=== PATIENT | female | born 1960 | race Caucasian/White ===

== ENCOUNTER 2017-07-10 12:23 | Emergency (ER) | payer MEDICAID, SELFPAY ==
[2017-07-10 12:23] VITALS: BP 179/124; PULSE 102; RESP 18; TEMP 36.3; O2SAT 97; BMI 42.5
--- NOTE | 2017-07-10 12:38 | EKG12_ITS ---
Test Reason : NAUSEA Blood Pressure : / mmHG Vent. Rate : 094 BPM Atrial Rate : 094 BPM P-R Int : 144 ms QRS Dur : 140 ms QT Int : 392 ms P-R-T Axes : 051 270 044 degrees QTc Int : 490 ms Sinus rhythm with frequent Premature ventricular complexes Right bundle branch block Left anterior fascicular block Bifascicular block Inferior infarct , age undetermined Abnormal ECG Confirmed by RAGHU AGUILA, JENIFER ([id number]), content editor DAMION YANEZ ([id number]) on 07/12/2017 1:09:20 PM Referred By: KIMMIE Confirmed By:JENIFER KRISHNAMURTHY MD
--- NOTE | 2017-07-10 12:39 | CT_ITS ---
STUDY: CT ABDOMEN AND PELVIS WITH CONTRAST REASON FOR EXAM: Female, 57 years old. Nausea, vomiting and abdominal pain x1 week. RADIATION DOSAGE (If Supplied By Facility): CTDIvol = ( 20.31 ) mGy, DLP = ( 1110.97 ) mGycm TECHNIQUE: Transaxial images were obtained from the dome of the diaphragm to the symphysis pubis without oral contrast. 100 ml of Isovue 300 contrast was administered. Sagittal and coronal images were reconstructed. Individualized dose optimization techniques were used for this CT. COMPARISON: None. FINDINGS: The visualized lung bases are unremarkable. The visualized portions of the heart are within normal limits. Normal liver. The gallbladder appears unremarkable. There is no intrahepatic biliary ductal dilatation. However, the common bile duct is distended measuring 1.[address] sequence 2, image 30. There is no CT evident etiology for this biliary ectasia. Normal spleen. Normal pancreas. Normal bilateral adrenal glands. Normal right kidney. Normal left kidney. Normal visualized stomach. Normal small intestine. Normal colon. There is non-visualization of the appendix. There is focal ectasia of the infrarenal abdominal aorta with calcified plaque. This ectasia extends into the bilateral common iliac arteries. No vasquez aneurysm is identified. Normal inferior vena cava. Normal retroperitoneum. Normal urinary bladder. Normal abdominal wall. There is no acute osseous abnormality. There is no suspicious lytic or blastic osseous pathology. Mild diffuse spinal degenerative changes are identified. CT/Abdomen/Pelvis WITH Contrast IMPRESSION: Common bile duct ectasia as above without CT evident etiology. Atherosclerotic peripheral vascular disease. Focal ectasia of the infrarenal abdominal aorta with calcified plaque. This ectasia extends into the bilateral common iliac arteries. No vasquez aneurysm is identified. No CT evident acute intra-abdominal or intrapelvic finding. Electronically Signed: Sid Ang MD at 15:02 EDT , Service support ,
[2017-07-10] MEDS: 0.9% Normal Saline 1,000 ML 1000 ML IV (12:58)
[2017-07-10] MEDS: proMETHazine 25 MG/ML Syringe 12.5 MG IV (12:58)
[2017-07-10] MEDS: HYDROmorphone 1 MG/ML Syringe IV (12:58)
[2017-07-10 13:04] LABS: Absolute Lymphocyte Count 2.74 X10^3/ul (0.83-4.51); Absolute Neutrophil Count 4.2 X10^3/uL (2.0-7.7); Basophil# 0.07 X10^3/uL; Basophil% 0.9 % (0-1); Eosinophil# 0.02 X10^3/uL; Eosinophils% 0.3 % (0-5); Hematocrit 41.8 % (37-47); Hemoglobin 13.3 g/dl (12.0-15.0); Lymphocyte # 2.74 X10^3/ul (4.0); Lymphocyte % 36.1 % (19-41); Mean Corp Hgb Conc 31.8 g/gl (32-36); Mean Corpuscular Hgb 26.2 pg (27.0-32.0); Mean Corpuscular Volume 82.3 fL (81-99); Monocyte# 0.53 X10^3/uL; Neutrophil # 4.21 X10^3/uL (2.7-7.7); Neutrophil % 55.6 % (47-70); Platelet Count 261 K/mm3 (150-450); RBC Distribution Width CV 18.4 % (11.6-14.6); RBC Distribution Width SD 55.3 fl (35.1-43.9); Red Blood Count 5.08 M/mm3 (4.2-5.4); White Blood Count 7.6 K/mm3 (4.4-11.0)
[2017-07-10 13:06] LABS: Differential Indicated SCAN CRITERIA MET; POSITIVE COUNT NO; POSITIVE DIFFERENTIAL NO; POSITIVE MORPHOLOGY YES
[2017-07-10 13:22] LABS: ALB/GLOB Ratio 0.8 RATIO (0.9-2.4); AST(SGOT) 17 U/L (15-37); Alanine Aminotransfer ALT/SGPT 28 U/L (13-56); Albumin, Serum 3.6 g/dL (3.2-5.0); Alkaline Phosphatase 103 U/L (45-117); Anion Gap 6 (5-15); BUN 11 mg/dL (7-18); BUN/Creat Ratio 14.4 RATIO (10-20); Calcium,Total 9.5 mg/dL (8.5-10.1); Chloride 102 mmol/L (98-107); Creatinine, Serum 0.76 mg/dL (0.55-1.02); EST Glomerular Filtration Rate 83 mL/min (>60); Est Glom Filt Rate - Afr Amer 100 mL/min (>60); Estimated Creatinine Clearance 66.74 ml/min; Globulin 4.6 g/dL (2.2-4.2); Glucose 106 mg/dL (74-106); Lipase 133 U/L (73-393); Potassium 3.9 mmol/L (3.5-5.1); Protein, Total 8.2 g/dL (6.4-8.2); Sodium Level 138 mmol/L (136-145)
[2017-07-10 13:25] LABS: Lactic Acid 1.4 mmol/L (0.4-2.0)
[2017-07-10 13:30] LABS: Atypical Lymphocyte RARE %
[2017-07-10 14:39] LABS: Bacteria 0 SEEN /hpf (None Seen); Mucous, Urine 0 SEEN /hpf (<or=2+); Red Blood Cells-Urine 0 SEEN /hpf (0-5); White Blood Cells 0 SEEN /hpf (0-5)
[2017-07-10 14:42] LABS: Color, Urine Yellow (Yellow); Glucose, Dipstick Normal (Normal); Ketone-Dipstick Negative (Negative); Leukocyte Esterase-Dipstick Negative /ul (Negative); Nitrite-Dipstick Negative (Negative); Occult Blood-Urine 10 /ul (Negative); Protein-Dipstick 15 mg/dl (Negative); Urine Bilirubin Dipstick Negative (Negative); Urine Clarity Clear (Clear); Urine Urobilinogen Normal (Normal)
[2017-07-10 14:48] VITALS: BP 122/93; PULSE 96; RESP 16; O2SAT 95
[2017-07-10 14:48] LABS: Squamous Epithelial Cells - UA 0-5 SEEN /hpf (5-10)
--- NOTE | 2017-07-10 15:24 | US_ITS ---
STUDY: ABDOMINAL ULTRASOUND - RIGHT UPPER QUADRANT REASON FOR VISIT: Female, 57 years old. ABD PAIN TECHNIQUE: Ultrasound evaluation of the right upper quadrant was performed with real-time and static ritchie-scale imaging. TECHNICAL QUALITY: Adequate. COMPARISON: CT Jul 10 2017 2:04pm . FINDINGS: Liver: The liver measures 19.1 cm. There is increased echogenicity consistent with fatty infiltration. The bile ducts are within normal limits. There is hepatic color flow. The direction of portal flow is hepatopetal. There is no demonstrated mass lesion. Gallbladder: Normal distended gallbladder. The gallbladder wall measures 2.7 mm. There is a negative sonographic Gonzalez's sign. There is no pericholecystic fluid. There are no gallstones. Common Bile Duct (C.B.D.): The common bile duct measures 3.5 -5.7mm. Pancreas: There is nonvisualization of the pancreas. Right Kidney: Normal size of the right kidney. The right kidney measures 11.1X6X4.9 cm. Normal renal cortex. The right cortex measures 1.6 cm. There is no demonstrated renal mass or cyst. There is no right hydronephrosis. US/Gallbladder IMPRESSION: There is nonvisualization of the pancreas. Fatty liver. There is mild dilation of the common bile duct. A common bile duct stone is not seen. Electronically Signed: Rob Greco MD at 17:05 EDT , Service support ,
--- NOTE | 2017-07-10 16:21 | ED.VISSUMM ---
- ER Visit Summary Date of Service: 07/10/17 Chief Complaint: [Abdominal pain] History of Present Illness: The patient is a 57 F [to the emergency department complaint of abdominal pain times 6 days. Patient's had nausea and vomiting as well as dry heaves. Patient had fever up to 100.0 at home. She denies any diarrhea. She has had decreased appetite. Patient denies urinary symptoms. Patient has had prior appendectomy and she has had a thoracic aortic aneurysm repair. Patient had tubal ligation.] Physical Examination: [HEENT-PERRLA, EOMI. Cranial nerves II through XII grossly intact. TMs clear. Mucous membranes moist. No adenopathy. Cardiovascular-regular rate and rhythm without murmur or ectopy Lungs-clear to auscultation, chest wall stable without crepitus or subcu emphysema Abdomen-normoactive bowel sounds, soft. Patient has tenderness over the right upper quadrant and epigastric region. There is no rebound, rigidity, or perineal signs. Extremities-intact ?4, normal range of motion, normal pulses, atraumatic] Test Results: [CBC with differential obtained was normal. Chemistries were normal. Liver enzymes were normal. Lipase is 133. EKG obtained on arrival shows sinus rhythm with a ventricular rate of 94 bpm with occasional PVCs and a bifascicular block. Troponin was less than 0.02. CT scan of the abdomen and pelvis showed common bile duct ectasia otherwise nothing acute. Gallbladder ultrasound pending] Emergency Department Course and Treatment: [Was medicated with Dilaudid and Phenergan. Patient's pain resolved.] Treatment Plan: [Pending ultrasound report]. Care of patient turned over to evening physician awaiting results Disposition: [Pending] Impression: [Abdominal pain] This note was generated with [employer]™ dictation software. It may contain incorrect words, spelling, and punctuation that were not noted in review of the chart prior to signing ED Disposition - Plan for ED Patient: Chief Complaint: Nausea/Vomiting Referrals: Francisco Sands MD [Primary Care Provider] -
[2017-07-10 16:48] LABS: Prothrombin Time (Protime)PT. 22.3 SECONDS (11.7-14.9)
[2017-07-10 17:13] VITALS: BP 105/74; PULSE 92; RESP 20; O2SAT 96
[2017-07-10 18:31] VITALS: BP 150/100; PULSE 108; RESP 20; TEMP 37.3; O2SAT 99
[2017-07-10] MEDS: proMETHazine 25 MG/ML Syringe 6.25 MG IV (19:20)
--- NOTE | 2017-07-10 19:57 | ED.VISSUMM ---
- ER Visit Summary Date of Service: 07/10/17 Chief Complaint: [] History of Present Illness: The patient is a 57 F [] Physical Examination: [] Test Results: [] Emergency Department Course and Treatment: [] Treatment Plan: [] Disposition: [] Impression: [] This note was generated with [employer] dictation software. It may contain incorrect words, spelling, and punctuation that were not noted in review of the chart prior to signing ED Disposition - Plan for ED Patient: Disposition: Home or Assisted Living Chief Complaint: Nausea/Vomiting Instructions: ED Abdominal Pain Unkn Cause Referrals: Francisco Sands MD [Primary Care Provider] - 3-5 Days if not improving
[2017-07-10 20:10] VITALS: BP 150/103; PULSE 110; RESP 18; O2SAT 98
--- NOTE | 2017-07-10 20:12 | ED.DCSUM_ITS ---
- ER Visit Summary Date of Service: 07/10/17 Chief Complaint: [] History of Present Illness: The patient is a 57 F [] Physical Examination: [] Test Results: [] Emergency Department Course and Treatment: [] Treatment Plan: [] Disposition: [] Impression: [] This note was generated with [employer] dictation software. It may contain incorrect words, spelling, and punctuation that were not noted in review of the chart prior to signing ED Disposition - Plan for ED Patient: Disposition: Home or Assisted Living Chief Complaint: Nausea/Vomiting Instructions: ED Abdominal Pain Unkn Cause Prescriptions: Ondansetron [Zofran Odt] 8 mg PO Q8H PRN PRN #5 PRN Reason: Nausea/Vomiting Referrals: Francisco Sands MD [Primary Care Provider] - 3-5 Days if not improving
== END 2017-07-10 20:13 | disposition home or self-care (01) ==
PROVIDERS: Emergency Provider Emergency Medicine; Family Provider Family Medicine; PCP Family Medicine
DX: R10.816 Epigastric abdominal tenderness (principal); R10.811 Right upper quadrant abdominal tenderness; R11.2 Nausea with vomiting, unspecified; R50.9 Fever, unspecified; I49.3 Ventricular premature depolarization; I45.2 Bifascicular block; I10 Essential (primary) hypertension; Z90.89 Acquired absence of other organs; Z98.51 Tubal ligation status; Z79.01 Long term (current) use of anticoagulants; Z79.899 Other long term (current) drug therapy
CPT/HCPCS: 74177; 76705; 80053; 81001; 83605; 83690; 84484; 85025; 85610; 93005; 96361; 96374; 96375; 96376; 99283; J7030; Q9967; A4216

== ENCOUNTER → 2017-09-12 12:34 | Outpatient (CLI) | payer MEDICAID, SELFPAY ==
[2017-09-12 13:17] LABS: ALB/GLOB Ratio 0.8 RATIO (0.9-2.4); AST(SGOT) 19 U/L (15-37); Alanine Aminotransfer ALT/SGPT 22 U/L (13-56); Albumin, Serum 3.6 g/dL (3.2-5.0); Alkaline Phosphatase 96 U/L (45-117); Anion Gap 7 (5-15); BUN 16 mg/dL (7-18); BUN/Creat Ratio 18.8 RATIO (10-20); Calcium,Total 9.5 mg/dL (8.5-10.1); Chloride 104 mmol/L (98-107); Creatinine, Serum 0.85 mg/dL (0.55-1.02); EST Glomerular Filtration Rate 73 mL/min (>60); Est Glom Filt Rate - Afr Amer 88 mL/min (>60); Globulin 4.5 g/dL (2.2-4.2); Glucose 88 mg/dL (74-106); Lipase 213 U/L (73-393); Potassium 4.1 mmol/L (3.5-5.1); Protein, Total 8.1 g/dL (6.4-8.2); Sodium Level 139 mmol/L (136-145)
[2017-09-12 13:25] LABS: BNP,B-Type NATRIURETIC PEPTIDE 20.4 pg/mL (0-100)
== END ==
LOC: LAB 12:35 → LABSPEC 12:37
PROVIDERS: Family Provider Family Medicine; PCP Family Medicine
DX: R10.84 Generalized abdominal pain (principal); R06.00 Dyspnea, unspecified; R06.89 Other abnormalities of breathing
CPT/HCPCS: 80053; 83690; 83880

== ENCOUNTER → 2018-01-17 11:50 | Outpatient (CLI) | payer MEDICAID, SELFPAY ==
[2018-01-17 13:38] LABS: International Normalized Ratio 2.1
== END ==
PROVIDERS: Family Provider Family Medicine; PCP Family Medicine; Referring Provider Family Medicine; Visit Provider Family Medicine
DX: I48.0 Paroxysmal atrial fibrillation (principal)
CPT/HCPCS: 85610

== ENCOUNTER 2018-11-17 20:31 | Emergency (ER) | payer MEDICAID, SELFPAY ==
[2018-11-17 20:31] VITALS: BP 149/105; PULSE 79; RESP 20; TEMP 36.7; O2SAT 97; BMI 44.5
--- NOTE | 2018-11-17 20:51 | ED.VIS.GEN ---
History of Present Illness Chief Complaint: Back Detail of Chief Complaint: Back spasms Informant: Patient Onset: Today Current Severity: Mild Maximum Severity: Moderate Narrative: Patient presents with spasms to the right side of her back that started at dinner this evening. She denies any injury. Pain does not radiate down her legs. She does have a history of prior AAA repair. She denies any anterior abdominal pain. Past Medical History - Allergies and Home Meds Allergies/Adverse Reactions: Allergies No Known Allergies Allergy (Verified 07/10/17 12:27) Primary Care Physician: Francisco Sands MD [Primary Care Provider] - Prior records reviewed: Yes Past Medical History: - - Reviewed Lives: Spouse/ Significant Other Smoking Status: Current every day smoker Review of Systems General: Denies: Chills, Fever Eyes: Denies: Visual changes - bilaterally ENT: Denies: Bilateral ear pain Cardiovascular: Denies: Chest pain Respiratory: Denies: Dyspnea, Cough Gastrointestinal: Denies: Abdominal pain Genitourinary: Denies: Dysuria Musculoskeletal: Reports: Back pain Skin: Denies: Rash Neurological: Denies: Headache Endocrine: Denies: Polyuria, Polydipsia Hematologic: Denies: Easy bruising Allergy: Denies: Uticaria Physical Exam Vital Signs/Narrative: Vital Signs Temp Pulse Resp BP Pulse Ox 11/17/18 20:31 98.0 F 79 20 H 149/105 H 97 Inital Vital Signs reviewed: Yes General: Well nourished, Well developed Head: Normocephalic Eyes: Perrl, EOMI ENT: Moist mucous membranes Neck: Supple Cardiovascular: Regular rate, Regular rhythm Respiratory: No distress Abdomen: Soft, Nontender Back: - - No midline thoracic or lumbar tenderness. She does have tenderness in the upper lumbar paraspinals on the right. Extremities: Nontender Skin: Normal color Neurological: Alert, Oriented x3 Psychological: Normal affect Diagnostic/Tx/Re-eval Laboratory Results 11/17/18 21:05 Urine Color Yellow Urine Clarity Clear Urine pH 5.0 Ur Specific [place] 1.015 Urine Protein Negative Urine Glucose (UA) Normal Urine Ketones Negative Urine Occult Blood Negative Urine Nitrite Negative Urine Bilirubin Negative Urine Urobilinogen Normal Ur Leukocyte Esterase 25 H Urine RBC 0 SEEN Urine WBC 0-5 SEEN Ur Squamous Epith Cells 0-5 SEEN Urine Bacteria 0 SEEN Urine Mucus 0 SEEN - Medical Decision Making Patient was given 1 tab of [place] and 5 mg of p.o. Valium for muscle spasm. On repeat evaluation she does feel improved. Urine does not show infection. She has reproducible pain in the muscles. ED Disposition - Plan for ED Patient: Disposition: Home or Assisted Living Instructions: BACK SPASM, No Trauma Prescriptions: Hydrocodone Bitart/Apap 5-325 [[place] 5MG-325MG] 1 tablet PO Q6H PRN PRN 3 Days #10 tablet PRN Reason: Pain Diazepam [Valium] 5 mg PO Q8 PRN #10 tablet PRN Reason: Muscle Spasm Referrals: Francisco Sands MD [Primary Care Provider] - 1 Week if not improving
[2018-11-17] MEDS: diazePAM 5 MG Tablet PO (21:04)
[2018-11-17] MEDS: HYDROcodone Bitartrate/Apap 5/325 Tablet PO (21:04)
[2018-11-17 21:30] LABS: Bacteria 0 SEEN /hpf (None Seen); Mucous, Urine 0 SEEN /hpf (<or=2+); Red Blood Cells-Urine 0 SEEN /hpf (0-5)
[2018-11-17 21:47] LABS: Color, Urine Yellow (Yellow); Glucose, Dipstick Normal (Normal); Ketone-Dipstick Negative (Negative); Leukocyte Esterase-Dipstick 25 /ul (Negative); Nitrite-Dipstick Negative (Negative); Occult Blood-Urine Negative /ul (Negative); Protein-Dipstick Negative (Negative); Specific Gravity, Urine 1.015 (1.002-1.030); Urine Bilirubin Dipstick Negative (Negative); Urine Clarity Clear (Clear); Urine Urobilinogen Normal (Normal)
[2018-11-17 21:52] LABS: Squamous Epithelial Cells - UA 0-5 SEEN /hpf (5-10); White Blood Cells 0-5 SEEN /hpf (0-5)
[2018-11-17 22:11] VITALS: BP 138/69; PULSE 71; RESP 18; O2SAT 96
== END 2018-11-17 22:11 | disposition home or self-care (01) ==
PROVIDERS: Emergency Provider Emergency Medicine; Family Provider Family Medicine; PCP Family Medicine
DX: M62.830 Muscle spasm of back (principal); M54.5 Low back pain; Z79.899 Other long term (current) drug therapy; F17.200 Nicotine dependence, unspecified, uncomplicated
CPT/HCPCS: 81001; 99283

== ENCOUNTER 2019-04-18 18:27 | Emergency (ER) | payer MEDICAID, SELFPAY ==
[2019-04-18 18:30] VITALS: BP 165/136; PULSE 89; RESP 20; TEMP 36.6; O2SAT 94; BMI 40.7
--- NOTE | 2019-04-18 18:46 | ED.DCSUM_ITS ---
- ER Visit Summary Date of Service: 04/18/19 Chief Complaint: Atraumatic low back pain. History of prior muscle spasms. History of Present Illness: The patient is a 59 F history of COPD. Prior aortic repair. Patient states last night she started getting atraumatic back spasms. She is had these before. She denies dysuria or fever. No other complaints. No weakness or numbness in her upper or lower extremities. Physical Examination: Middle-aged female vital signs stable afebrile. H EENT exam unremarkable. Neck nontender no lymphadenopathy. Lungs clear to auscultation bilaterally. Heart regular rhythm no murmur. Abdomen is soft nontender normal bowel sounds no peritoneal signs. Patient moving all 4 extremities. Neurovascular intact. No cauda equina. Normal medial thigh sensation. Normal dorsi plantarflexion. Back patient has paralumbar soft tissue tenderness consistent with muscle spasms. Spine otherwise unremarkable. There is no signs of trauma. No bruising or redness or warmth. Neurologic exam unremarkable. No focal motor weakness or numbness. Test Results: None Emergency Department Course and Treatment: Patient history exam are consistent with lumbar muscle spasm. Will be treated with p.o. Valium. Prescription for Valium. Treatment Plan: Hot shower, warm soaks and massage. Valium for muscle spasms. Follow-up with her doctor. Disposition: discharge Impression: Acute back pain secondary to muscle spasms This note was generated with [employer] dictation software. It may contain incorrect words, spelling, and punctuation that were not noted in review of the chart prior to signing ED Disposition - Plan for ED Patient: Referrals: Francisco Sands MD [Primary Care Provider] -
--- NOTE | 2019-04-18 18:48 | ED.DEP ---
ED Disposition - Plan for ED Patient: Disposition: Home or Assisted Living Instructions: BACK SPASM, No Trauma Prescriptions: Diazepam [Valium] 5 mg PO Q6H PRN PRN 7 Days #20 tab PRN Reason: Spasms Prescription Printed Referrals: Francisco Sands MD [Primary Care Provider] - 3-5 Days if not improving Additional Instructions: Shower, warm bath massage. Valium as needed for muscle spasms. Motrin for pain and inflammation. Follow-up with your doctor as needed or return if worse.
[2019-04-18] MEDS: diazePAM 5 MG Tablet 10 MG PO (19:01)
[2019-04-18 19:03] VITALS: BP 158/92; PULSE 88; RESP 17; O2SAT 94
== END 2019-04-18 19:07 | disposition home or self-care (01) ==
PROVIDERS: Emergency Provider Emergency Medicine; PCP Family Medicine
DX: M62.830 Muscle spasm of back (principal); M54.9 Dorsalgia, unspecified; J44.9 Chronic obstructive pulmonary disease, unspecified; Z72.0 Tobacco use; Z79.899 Other long term (current) drug therapy
CPT/HCPCS: 99283

== ENCOUNTER 2019-05-28 12:22 | Emergency (ER) | payer MEDICAID, SELFPAY ==
[2019-05-28 12:23] VITALS: BP 192/104; PULSE 78; RESP 18; TEMP 36.2; O2SAT 94
[2019-05-28 12:24] VITALS: BP 192/104; PULSE 72; RESP 18; TEMP 36.2; O2SAT 93; BMI 42.7
--- NOTE | 2019-05-28 12:56 | ED.VIS.BACK ---
History of Present Illness Chief Complaint: Back Informant: Patient Onset: Days Context: Gradual Onset Timing: Continuous Quality: Sharp, Aching Location: Lumbar Worsened by: improves with: Movement Relieved by: Nothing Narrative: Patient is a 59-year-old female with history of AAA repair and coronary artery disease as well as chronic low back pain presenting with low back pain. Patient states this feels like her prior episodes of pain. She states when he gets this bad she she has to come to the ER and they give her Valium. Patient states she has had worsening back pain over the past few days. Is in her lower back. It is currently not radiating but she sometimes does have radiation of pain down her legs. She notes she also has had worsening bilateral knee pain. She has been referred to a back specialist as well as knee specialist and been told that she needs physical therapy but patient is hesitant to do this. She is been taking Norflex for the past 2 days with no relief of her symptoms. She states she is also almost about to run out. She is also been trying Tylenol and ibuprofen with no relief of her symptoms. She denies any fever, weakness, bowel or bladder incontinence or perineal numbness. She denies any other complaints at this time. Prior similar symptoms: Yes, With Prior Back Pain Past Medical History - Allergies and Home Meds Allergies/Adverse Reactions: Allergies varenicline [From Chantix] Allergy (Verified 05/28/19 12:23) Upset Stomach paper Allergy (Uncoded 04/18/19 18:28) Shortness of breath Primary Care Physician: Francisco Sands MD [Primary Care Provider] - Past Medical History: - - Coronary artery disease, chronic back pain, hypertension Surgical History: - - CABG, aneurysm repair Lives: Spouse/ Significant Other Smoking Status: Current every day smoker Review of Systems General: Denies: Chills, Fever, Sweats Eyes: Denies: Visual changes - bilaterally, Diplopia ENT: Denies: Rhinorrhea, Sore throat Cardiovascular: Denies: Chest pain, Palpitations Respiratory: Denies: Dyspnea, Cough, Dyspnea on exertion Gastrointestinal: Denies: Abdominal pain, Nausea, Vomiting, Diarrhea, Melena, Hematochezia Genitourinary: Denies: Dysuria, Hematuria, Frequency Musculoskeletal: Reports: Back pain, Extremity Pain - Bilateral knee pain Skin: Denies: Rash, Wounds Neurological: Denies: Headache, Weakness, Numbness Physical Exam Vital Signs/Narrative: Vital Signs Temp Pulse Resp BP Pulse Ox 05/28/19 12:24 97.1 F L 72 18 192/104 H 93 05/28/19 12:23 97.1 F L 78 18 192/104 H 94 Inital Vital Signs reviewed: Yes General: Well nourished, Well developed, Obese Head: Normocephalic, Atraumatic Eyes: Perrl, EOMI ENT: Moist mucous membranes, No rhinorrhea Neck: Supple, Nontender Cardiovascular: Regular rate, Regular rhythm, No murmurs Respiratory: No distress, CTA bilaterally, Chest nontender Abdomen: Soft, Nontender, Nondistended, Normal bowel sounds. Negative for: Pulsatile mass Back: Normal Inspection, Spinal tenderness, Paraspinal Tenderness - Bilateral lower lumbar, reproducible with direct palpation, Positive SLR - Right, Positive SLR - Left. Negative for: CVA tenderness Extremeties: No edema, Strong Pulses - 2+ DP, - - Mild diffuse tenderness of the bilateral knees, no warmth, range of motion intact, no instability Skin: Normal color, No rash Neuro: Alert, Oriented, Normal Strength, Normal Sensation, Normal DTR, Normal Gait Psychological: Normal affect Diagnostic/Tx/Re-eval - Medical Decision Making Patient is evaluated for acute exacerbation of her chronic back pain. It seems related to muscle spasms. She states Valium is helped in the past. Patient is given a dose of Valium in the emergency room as well as a short course. [place] report is checked which is consistent with patient's report. It does show the patient receives frequent medication refills from the ER for Valium. Patient is counseled she really needs to just follow-up with her back doctor her primary care doctor. She will continue to use heating pad, BenGay, ibuprofen, Tylenol for pain as well. Patient is neuro vastly intact. She is hemodynamically stable. I do not suspect a more sinister underlying cause of her back pain. Patient ambulates out of the emergency room. Patient is counseled on signs and symptoms requiring return to the emergency room. Patient verbalizes agreement and understand this plan. Patient discharged home in stable and improved condition. ED Disposition - Plan for ED Patient: Disposition: Home or Assisted Living Diagnosis: Acute exacerbation of chronic low back pain Instructions: BACK SPASM, No Trauma Prescriptions: Diazepam [Valium] 5 mg PO Q6H PRN PRN 3 Days #12 tab PRN Reason: Spasms Transmission Status: Received by HEIDI LOPES [id number] Referrals: Francisco Sands MD [Primary Care Provider] - Additional Instructions: Is very important that you follow-up with your primary care doctor or your back doctor for further management of your back pain. Continue to use heat, TENS unit and ibuprofen for your pain.
[2019-05-28] MEDS: diazePAM 5 MG Tablet PO (13:08)
== END 2019-05-28 13:13 | disposition home or self-care (01) ==
LOC: ED 13:04
PROVIDERS: Emergency Provider Emergency Medicine; PCP Family Medicine
DX: M54.5 Low back pain (principal); G89.29 Other chronic pain; I25.10 Atherosclerotic heart disease of native coronary artery without angina pectoris; I10 Essential (primary) hypertension; M25.561 Pain in right knee; M25.562 Pain in left knee; E66.9 Obesity, unspecified; F17.200 Nicotine dependence, unspecified, uncomplicated; Z79.899 Other long term (current) drug therapy; Z95.1 Presence of aortocoronary bypass graft
CPT/HCPCS: 99283

== ENCOUNTER 2019-10-10 19:31 | Emergency (ER) | payer MEDICARE, MEDICAID, SELFPAY ==
[2019-10-10 19:33] VITALS: BP 177/94; PULSE 84; PULSE 86; RESP 20; TEMP 37; TEMP 37.8; O2SAT 94; BMI 40.6
[2019-10-10 19:49] VITALS: BP 177/94; PULSE 86; RESP 20; TEMP 37.8; O2SAT 94
--- NOTE | 2019-10-10 20:36 | CT_ITS ---
STUDY: CT BRAIN WITHOUT CONTRAST REASON FOR EXAM: Female, 59 years old. Headache. RADIATION DOSAGE (If Supplied By Facility): CTDIvol = ( 44.99 ) mGy, DLP = ( 812.98 ) mGycm TECHNIQUE: Transaxial CT imaging of the brain was performed without administration of intravenous contrast material. Individualized dose optimization techniques were used for this CT. COMPARISON: None. FINDINGS: There is no acute bleed or infarct. There are normal white matter tracts. The ventricles are normal in configuration. There is no hydrocephalus. The visualized paranasal sinuses are clear. The mastoid air cells are well aerated. There is no skull fracture. CT/Brain/Head without Contrast IMPRESSION: No acute intracranial abnormality. Electronically Signed: Gilbert Blanc, at 21:32 EDT Tel , Service support ,
[2019-10-10] MEDS: 0.9% Normal Saline 1,000 ML 999 ML IV (20:56)
[2019-10-10] MEDS: DiphenhydrAMINE 50 MG/ML Syringe 25 MG IV (20:57)
[2019-10-10] MEDS: Metoclopramide 10 MG/2 ML Vial IV (20:58)
[2019-10-10] MEDS: Orphenadrine 60 MG/2 ML Ampul IM (21:03)
--- NOTE | 2019-10-10 21:44 | ED.VISSUMM ---
- ER Visit Summary Date of Service: 10/10/19 Chief Complaint: Headache History of Present Illness: The patient is a 59 F who presents with a headache that is been getting worse over the last 5 days. Patient states the pain is over the occipital area. Patient describes the pain is dull and throbbing. Patient states nothing makes it better or worse. Patient denies any fevers or chills. Patient denies any nausea or vomiting. Patient denies any paresthesias or weakness. Patient denies any photophobia or visual changes. Patient states the pain does radiate down her to her neck. Physical Examination: Vital signs are stable. Patient is afebrile. Patient is in no acute distress. Oral mucosa is pink and moist. Neck is supple. Trachea is midline. There is no JVD. There is no meningismus noted. Heart was regular rate and rhythm. Lungs are clear and equal bilaterally. Abdomen is soft. Bowel sounds are normal. There is no tenderness. Cranial nerves II through XII are intact. There are no focal motor or sensory deficits noted. Test Results: CT scan of the brain was obtained. There is no acute intracranial abnormality. This was interpreted by the radiologist and reviewed by myself. Emergency Department Course and Treatment: Patient was given IV fluids, Reglan, and Benadryl. Patient is also given IM Norflex. Patient is feeling better on reevaluation. Patient wants to go home. Patient was instructed to rest in a dark quiet room. Patient was instructed to follow-up with her primary care physician in 5 to 7 days. Patient understood and was agreeable with the plan. All questions were answered. Disposition: Discharge home Impression: 1. Headache This note was generated with [employer] dictation software. It may contain incorrect words, spelling, and punctuation that were not noted in review of the chart prior to signing ED Disposition - Plan for ED Patient: Disposition: Home or Assisted Living Diagnosis: Headache Instructions: ED Headache Unspecified Referrals: Francisco Sands MD [Primary Care Provider] - 5-7 Days
[2019-10-10 22:12] VITALS: BP 149/100; PULSE 88; RESP 18; TEMP 37.7; O2SAT 93
== END 2019-10-10 22:15 | disposition home or self-care (01) ==
PROVIDERS: Emergency Provider Emergency Medicine; PCP Family Medicine
DX: R51 Headache (principal); M54.2 Cervicalgia; I10 Essential (primary) hypertension; M19.90 Unspecified osteoarthritis, unspecified site; Z72.0 Tobacco use; Z79.899 Other long term (current) drug therapy
CPT/HCPCS: 70450; 96361; 96372; 96374; 96375; 99283; J7030; A4216